=== PATIENT | male | born 1950 ===

== ENCOUNTER 2018-04-27 16:20 | Emergency (ER) | payer MEDICARE ==
[2018-04-27 16:29] VITALS: TEMP 98.6
[2018-04-27] MEDS ORDERED: Sodium Chloride 0.9% 500 ML IV ONE ×2 (17:13→18:12)
--- NOTE | 2018-04-27 17:33 | RAD ---
Date of service: 04/27/2018 PROCEDURE: CHEST RADIOGRAPH, 1 VIEW HISTORY: SOB COMPARISON: Chest radiograph dated 04/27/2015. FINDINGS: LUNGS: Clear. PLEURA: No pneumothorax or pleural fluid seen. CARDIOVASCULAR: Atherosclerotic aortic calcifications. Cardiomediastinal silhouette stably prominent. OSSEOUS STRUCTURES: Unchanged. VISUALIZED UPPER ABDOMEN: Normal. OTHER FINDINGS: None. IMPRESSION: No active disease.
--- NOTE | 2018-04-27 17:56 | C.PDOC ---
History Of Present Illness 68yo male, comes to ER complaining of dizziness since this morning, which is worse with laying flat or sitting up straight. He deneis any dizziness when he is moving his head. Patient reports he was taking Lyrica for his chronic neuropathic pain and states the medication worked well so he stopped taking it for 3 months. Patient states the pain returned and he restarted the medication x 1 per day for the past week. He denies any history of vertigo or benign positional vertigo. Otherwise, denies any headache, weakness, numbness, and offers no other complaints. Time Seen by Provider: 04/27/18 17:01 Chief Complaint (Nursing): Dizziness/Lightheaded History Per: Patient History/Exam Limitations: no limitations Onset/Duration Of Symptoms: Days Current Symptoms Are (Timing): Still Present Activity At Onset Of Symptoms: Lying, Sitting Additional History Per: Patient Past Medical History Reviewed: Historical Data, Nursing Documentation, Vital Signs Vital Signs: Last Vital Signs Temp 98.6 F 04/27/18 16:26 Pulse 69 04/27/18 16:26 Resp 18 04/27/18 16:26 BP 139/85 04/27/18 16:26 Pulse Ox 100 04/27/18 18:00 - Medical History PMH: Anxiety, Arthritis, HTN, Hypercholesterolemia, Sleep Apnea (on Cpap) Surgical History: Appendectomy - [facility] Procedures TETANUS TOXOID ADMINIST (12/28/13) Family History: States: Unknown Family Hx - Social History Hx Tobacco Use: No Hx Alcohol Use: No Hx Substance Use: No - Immunization History Hx Tetanus Toxoid Vaccination: Yes Hx Influenza Vaccination: Yes Hx Pneumococcal Vaccination: No Review Of Systems Except As Marked, All Systems Reviewed And Found Negative. Constitutional: Negative for: Fever, Chills Eyes: Negative for: Vision Change Neurological: Positive for: Dizziness. Negative for: Weakness, Numbness Physical Exam - Physical Exam Appears: Non-toxic, No Acute Distress Skin: Normal Color, Warm, Dry Head: Atraumatic, Normacephalic, No Tenderness Eye(s): bilateral: Normal Inspection, PERRL, EOMI, Other (no nystagmus noted with head movement) Neck: Normal ROM, Supple Chest: Symmetrical Cardiovascular: Rhythm Regular Respiratory: Normal Breath Sounds Gastrointestinal/Abdominal: Normal Exam, Soft, No Tenderness Back: Normal Inspection Extremity: Normal ROM Neurological/Psych: Oriented x3 ED Course And Treatment - Laboratory Results Result Diagrams: 04/27/18 18:12 04/27/18 18:12 Lab Interpretation: Normal (ua neg.) ECG: Interpreted By Me ECG Rhythm: Sinus Rhythm ECG Interpretation: Normal Rate From EC O2 Sat by Pulse Oximetry: 100 (RA) Pulse Ox Interpretation: Normal - Radiology CXR: Interpreted by Me CXR Interpretation: Yes: No Acute Disease Progress Note: meclizine 50 PO Reevaluation Time: 18:42 Reassessment Condition: Improved Medical Decision Making Medical Decision Making: Impression: Dizziness Plan: -- CT Head w/o contrast -- Labs -- Meclizine 25mg PO -- IV Fluids -- Urinalysis ? BPV vs symptoms from stopping chronic Lyrica BID treatment abruptly approx [address] results suggest possibility of recent subtle SDH's, pt denies h/o head trauma. LOW susp of SDH's, and would not require inpt eval. pt already followed by Neurology- will call for appt. Disposition Doctor Will See Patient In The: Office Counseled Patient/Family Regarding: Studies Performed, Diagnosis - Disposition Disposition: HOME/ ROUTINE Disposition Time: 18:45 Condition: GOOD Forms: [facility] (Liberian) - Clinical Impression Clinical Impression: Dizziness - Scribe Statement The provider has reviewed the documentation as recorded by the Osiris Maldonado Provider Attestation: All medical record entries made by the Osiris were at my direction and personally dictated by me. I have reviewed the chart and agree that the record accurately reflects my personal performance of the history, physical exam, medical decision making, and the department course for this patient. I have also personally directed, reviewed, and agree with the discharge instructions and disposition.
--- NOTE | 2018-04-27 18:10 | CT ---
Date of service: 04/27/2018 PROCEDURE: CT HEAD WITHOUT CONTRAST. HISTORY: dizzy x 1 day COMPARISON: No prior study available for comparison TECHNIQUE: Axial computed tomography images were obtained through the head/brain without intravenous contrast. Radiation dose: Total exam DLP = 746.2 mGy-cm. This CT exam was performed using one or more of the following dose reduction techniques: Automated exposure control, adjustment of the mA and/or kV according to patient size, and/or use of iterative reconstruction technique. FINDINGS: HEMORRHAGE: Current study reveals mild localized enlargement of bifrontal subarachnoid spaces which around demonstrate Hounsfield units in the upper 20s. These findings could represent residual very tiny chronic subdural hematomas. Has there been a recent history fall ? Clinical correlation with history is recommended BRAIN: No evidence of large acute infarct. Minor chronic periventricular white matter ischemic changes are suspected. Note that the possibility of a small hyperacute infarct cannot be excluded on this study. Clinical correlation recommended. No obvious parenchymal nor extra-axial masses. Mild age-appropriate volume loss. VENTRICLES: Unremarkable. No hydrocephalus. CALVARIUM: No acute calvarial fractures are identified. PARANASAL SINUSES: Unremarkable as visualized. No significant inflammatory changes. MASTOID AIR CELLS: Unremarkable as visualized. No inflammatory changes. OTHER FINDINGS: None. IMPRESSION: Localized enlargement of the bifrontal subarachnoid spaces with density measurements in the upper 20s. On findings could represent tiny residual chronic subdural hematomas. Has there been a recent history of fall? . Clinical correlation recommended. No evidence of large acute infarct. Minor chronic periventricular white matter ischemic changes. Loss Mild age-appropriate volume
[2018-04-27 18:16] LABS: BASO % 0.7 % (0.0-2.0); EOS # 0.1 K/uL (0.0-0.7); EOS % 1.1 % (0.0-4.0); HEMOGLOBIN 14.6 g/dL (12.0-18.0); LYMPH # 2.2 K/uL (1.0-4.3); LYMPH % 32.6 % (20.0-40.0); MEAN CELL VOLUME 93.7 fL (80.0-94.0); MEAN CORPUSCULAR HEMOGLOBIN 31.8 pg (27.0-31.0); MEAN PLATELET VOLUME 8.3 fL (7.2-11.7); MONO # 0.6 K/uL (0.0-0.8); MONO % 8.4 % (0.0-10.0); NEUT # 3.9 K/uL (1.8-7.0); NEUT % 57.2 % (50.0-75.0); NRBC % 0.1 % (0.0-2.0); RBC 4.6 Mil/uL (4.40-5.90); RED CELL DISTRIBUTION WIDTH 14.2 % (11.5-14.5); WHITE BLOOD COUNT 6.8 K/uL (4.8-10.8)
[2018-04-27 18:21] LABS: URINE BILIRUBIN NEGATIVE (NEGATIVE); URINE BLOOD NEGATIVE (NEGATIVE); URINE CLARITY Clear (Clear); URINE COLOR Yellow (YELLOW); URINE GLUCOSE (UA) NORMAL (Normal); URINE LEUKOCYTE ESTERASE NEG Leu/uL (Negative); URINE PROTEIN NEGATIVE (NEGATIVE); URINE UROBILINOGEN NORMAL mg/dL (0.2-1.0)
[2018-04-27 18:28] LABS: ALB/GLOB RATIO 1.6 (1.0-2.1); ALBUMIN 4.6 g/dL (3.5-5.0); CALCIUM 8.9 mg/dl (8.6-10.4); GFR AFRICAN-AMERICAN > 60; GFR NON-AFRICAN AMERICAN > 60
[2018-04-27 18:33] LABS: ALT/SGPT 28 U/L (21-72); AST/SGOT 42 U/L (17-59); BLOOD UREA NITROGEN 21 mg/dL (9-20)
[2018-04-27 18:41] LABS: B-TYPE NATRIURETIC PEPTIDE 52.4 pg/mL (0-900)
[2018-04-27 18:53] VITALS: BP 140/72; PULSE 57; RESP 15; O2SAT 96
== END 2018-04-27 19:00 | disposition home or self-care (01) ==
LOC: C.ER 16:20
DX: R42 Dizziness and giddiness (principal)
CPT/HCPCS: 70450; 71045; 80053; 81001; 83880; 84484; 85025; 99285; J7040

== ENCOUNTER 2018-11-02 11:53 | Outpatient (CLI) | payer MEDICARE | END 2018-11-02 11:54 | disposition home or self-care (01) | LOC: C.RADH 11:53 ==

== ENCOUNTER 2018-11-05 09:24 | Emergency (ER) | payer MEDICARE ==
[2018-11-05 09:31] VITALS: BMI 29.0
[2018-11-05 09:34] VITALS: PULSE 76; RESP 18; O2SAT 99
[2018-11-05 10:01] LABS: EOS % 0.1 % (0.0-4.0); HEMOGLOBIN 12.8 g/dL (12.0-18.0); LYMPH # 0.6 K/uL (1.0-4.3)
[2018-11-05 10:10] LABS: INR 1.5; LYMPH % 4.4 % (20.0-40.0); MEAN CORPUSCULAR HEMOGLOBIN 31.4 pg (27.0-31.0); MEAN CORPUSCULAR HGB CONC 33.4 g/dL (33.0-37.0); MEAN PLATELET VOLUME 8.2 fL (7.2-11.7); MONO # 0.6 K/uL (0.0-0.8); MONO % 4.5 % (0.0-10.0); NEUT # 12.6 K/uL (1.8-7.0); PLATELET COUNT 131 K/uL (130-400); RED CELL DISTRIBUTION WIDTH 13.8 % (11.5-14.5); WHITE BLOOD COUNT 13.9 K/uL (4.8-10.8)
[2018-11-05 10:20] LABS: ALB/GLOB RATIO 1.2 (1.0-2.1); ALBUMIN 3.9 g/dL (3.5-5.0); ALT/SGPT 15 U/L (21-72); AST/SGOT 23 U/L (17-59); BLOOD UREA NITROGEN 24 mg/dL (9-20); CALCIUM 8.3 mg/dl (8.6-10.4); GFR NON-AFRICAN AMERICAN > 60
[2018-11-05 10:27] LABS: BANDS 1 % (0-2); BASOPHIL 1 % (0-2); LYMPHOCYTE 5 % (20-40); MONOCYTE 5 % (0-10); NEUTROPHIL 88 % (50-75); PLATELET ESTIMATE NORMAL (NORMAL); TOTAL CELLS COUNTED 100
--- NOTE | 2018-11-05 10:34 | RAD ---
Date of service: 11/05/2018 HISTORY: SOB COMPARISON: Chest radiographs 09/28/2018. FINDINGS: LUNGS: No active pulmonary disease. PLEURA: No significant pleural effusion identified, no pneumothorax apparent. CARDIOVASCULAR: No aortic atherosclerotic calcification present. Normal cardiac size. No pulmonary vascular congestion. OSSEOUS STRUCTURES: No significant abnormalities. VISUALIZED UPPER ABDOMEN: Normal. OTHER FINDINGS: None. IMPRESSION: No interval acute cardiopulmonary disease appreciated.
[2018-11-05 11:20] LABS: SQUAMOUS EPITHIAL 1 /hpf (0-5); URINE BACTERIA MANY (<OCC); URINE BILIRUBIN NEGATIVE (NEGATIVE); URINE BLOOD 2+ (NEGATIVE); URINE CLARITY Hazy (Clear); URINE COLOR Yellow (YELLOW); URINE GLUCOSE (UA) NORMAL (Normal); URINE LEUKOCYTE ESTERASE 2+ Leu/uL (Negative); URINE PROTEIN 2+ mg/dL (NEGATIVE); URINE UROBILINOGEN NORMAL mg/dL (0.2-1.0); WBC CLUMPS RARE /hpf
--- NOTE | 2018-11-05 11:22 | C.PDOC ---
History Of Present Illness 68 y/o male, w/PMhx of prostate cancer, HTN, and hyperlipidemia, presents to the ER complaining of fever which has been present for the past 3 days. Patient states that he had bone scan for prostate cancer in the hospital 3 days ago. Patient began having fever when he went home after the study. He notes that his Tmax is 102 F. He reports that he took leftover Cipro and Tylenol. He notes that he is not currently undergoing chemotherapy. Denies having cough, CP, and SOB. Time Seen by Provider: 11/05/18 09:39 Chief Complaint (Nursing): Fever History Per: Patient History/Exam Limitations: no limitations Onset/Duration Of Symptoms: Days Current Symptoms Are (Timing): Still Present Severity: Moderate Past Medical History Reviewed: Historical Data, Nursing Documentation, Vital Signs Vital Signs: Last Vital Signs Temp 98.3 F 11/05/18 09:30 Pulse 76 11/05/18 09:30 Resp 18 11/05/18 09:30 BP 132/72 11/05/18 09:30 Pulse Ox 99 11/05/18 09:30 - Medical History PMH: Anxiety, Arthritis, HTN, Hypercholesterolemia, Sleep Apnea (on Cpap) Surgical History: Appendectomy - [facility] Procedures TETANUS TOXOID ADMINIST (12/28/13) Family History: States: No Known Family Hx - Social History Hx Tobacco Use: No Hx Alcohol Use: No Hx Substance Use: No - Immunization History Hx Tetanus Toxoid Vaccination: Yes Hx Influenza Vaccination: Yes Hx Pneumococcal Vaccination: No Review Of Systems Except As Marked, All Systems Reviewed And Found Negative. Constitutional: Positive for: Fever. Negative for: Chills Cardiovascular: Negative for: Chest Pain Respiratory: Negative for: Cough, Shortness of Breath Gastrointestinal: Negative for: Nausea Physical Exam - Physical Exam Appears: Non-toxic, No Acute Distress Skin: Normal Color, Warm, Dry Head: Atraumatic, Normacephalic Eye(s): bilateral: Normal Inspection Ear(s): Bilateral: Normal Nose: Normal Oral Mucosa: Moist Throat: Normal, No Erythema, No Exudate Neck: Supple Chest: Symmetrical Cardiovascular: Rhythm Regular Respiratory: Normal Breath Sounds, No Rales, No Rhonchi, No Wheezing Gastrointestinal/Abdominal: Soft, No Tenderness, No Guarding, No Rebound Neurological/Psych: Oriented x3, Normal Speech ED Course And Treatment - Laboratory Results Result Diagrams: 11/05/18 09:56 11/05/18 09:56 Lab Results: PT 16.0 SECONDS (9.7-12.2) H 11/05/18 09:56 INR 1.5 11/05/18 09:56 APTT 32 SECONDS (21-34) 11/05/18 09:56 Total Bilirubin 0.8 mg/dL (0.2-1.3) 11/05/18 09:56 AST 23 U/L (17-59) 11/05/18 09:56 ALT 15 U/L (21-72) L D 11/05/18 09:56 Alkaline Phosphatase 80 U/L (38-126) 11/05/18 09:56 Total Protein 7.0 g/dL (6.3-8.3) 11/05/18 09:56 Albumin 3.9 g/dL (3.5-5.0) 11/05/18 09:56 Globulin 3.1 gm/dL (2.2-3.9) 11/05/18 09:56 Albumin/Globulin Ratio 1.2 (1.0-2.1) 11/05/18 09:56 O2 Sat by Pulse Oximetry: 99 (RA) Pulse Ox Interpretation: Normal - Other Rad CXR X-Ray: Viewed By Me, Read By Radiologist Interpretation: Date of service: 11/05/2018. HISTORY: SOB. COMPARISON: Chest radiographs 09/28/2018. FINDINGS: LUNGS: No active pulmonary disease. PLEURA: No significant pleural effusion identified, no pneumothorax apparent. CARDIOVASCULAR: No aortic atherosclerotic calcification present. Normal cardiac size. No pulmonary vascular congestion. OSSEOUS STRUCTURES: No significant abnormalities. VISUALIZED UPPER ABDOMEN: Normal. OTHER FINDINGS: None. IMPRESSION: No interval acute cardiopulmonary disease appreciated. Medical Decision Making Medical Decision Making: ro sepsis, uti, influenza. Plan: --Labs --CXR --Flu Swab --UA --Urine Culture Updates: 11:32 Patient states that he has been taking Cipro for the past 3 days with no improvement in urinary symptoms. Patient was informed that he should be admitted for IV abx secondary to failure of outpatient therapy.However, patient refused. I have prescribed patient Bactrim for his urinary symptoms. Patient has been discharged and and instructed to ER for worsening symptoms. Disposition - Disposition Referrals: [facility] [Outside] [facility] [Outside] Disposition: AGAINST MEDICAL ADVICE Disposition Time: 11:59 Condition: UNKNOWN Additional Instructions: return to er with worsening symptoms or concerns. Prescriptions: Sulfamethoxazole/Trimethoprim [Bactrim DS 800 mg-160 mg] 1 tab PO BID #20 tab Instructions: Urinary Tract Infections in Adults, Leaving Against Medical Advice Forms: [facility] (Khmer) - Clinical Impression Clinical Impression: UTI (urinary tract infection), Left against medical advice - Scribe Statement The provider has reviewed the documentation as recorded by the Osiris Boyd Provider Attestation: All medical record entries made by the Osiris were at my direction and personally dictated by me. I have reviewed the chart and agree that the record accurately reflects my personal performance of the history, physical exam, medical decision making, and the department course for this patient. I have also personally directed, reviewed, and agree with the discharge instructions and disposition.
[2018-11-05] MEDS ORDERED: Tmp-Smz 800 mg-160 mg DS Tab PO STA (11:25)
[2018-11-05] MEDS ORDERED: Tmp-Smz 800 mg-160 mg DS Tab ONE (11:51)
[2018-11-05 11:59] VITALS: BP 120/70; TEMP 98.1
== END 2018-11-05 12:00 | disposition left against medical advice (07) ==
LOC: C.ER 09:24
DX: N39.0 Urinary tract infection, site not specified (principal)

== ENCOUNTER 2019-01-14 15:05 | Outpatient (CLI) | payer MEDICARE | END 2019-01-14 15:06 | disposition home or self-care (01) | LOC: C.RADIC 15:06 ==